=== PATIENT | male | born 1975 | race Caucasian/White ===

== ENCOUNTER 2019-05-03 18:37 | Emergency (ER) | payer OTHER ==
[2019-05-03] MEDS: HYDROmorphone 1 MG/ML 1 ML SYRINGE IVP STA ×3 (18:43→21:14)
[2019-05-03] MEDS ORDERED: SODIUM CHLORIDE 0.9% 1,000 ML IV STA (18:46)
[2019-05-03 19:07] LABS: Basophils # (A) 0.1 k/uL (0-0.2); Basophils % (A) 1 %; Eosinophils # (A) 0.3 k/uL (0-0.7); Eosinophils % (A) 2 %; HCT 46.8 % (39.0-53.0); Lymphocytes # (A) 2.5 k/uL (1.0-4.8); Lymphocytes % (A) 21 %; MCH 31.2 pg (25.0-35.0); MCHC 34.2 g/dL (31.0-37.0); MCV 91.2 fL (80.0-100.0); Mean Platelet Volume 7.6; Monocytes # (A) 0.6 k/uL (0-1.0); Monocytes % (A) 5 %; Neutrophils # (A) 8.3 k/uL (1.3-7.7); Neutrophils % (A) 70 %; Platelet Count 197 k/uL (150-450); RBC 5.13 m/uL (4.30-5.90); RDW 12.5 % (11.5-15.5)
[2019-05-03 19:08] LABS: Glucose,Whole Blood 134 mg/dL (75-99)
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
[2019-05-03 19:18] LABS: Partial Thromboplastin Time 23.4 sec (22.0-30.0); Prothrombin Time 10.7 sec (9.0-12.0)
[2019-05-03 19:20] LABS: ALT 21 U/L (21-72); AST 25 U/L (17-59); African American GFR (CKD) >90 (>60 ml/min/1.73 sqM); Albumin 4.7 g/dL (3.5-5.0); Alcohol <10 mg/dL; Alkaline Phosphatase 89 U/L (38-126); Amylase 57 U/L (30-110); Anion Gap 12 mmol/L; Blood Urea Nitrogen 24 mg/dL (9-20); Calcium 9.4 mg/dL (8.4-10.2); Carbon Dioxide 23 mmol/L (22-30); Chloride 106 mmol/L (98-107); Glucose 138 mg/dL (74-99); Potassium 3.8 mmol/L (3.5-5.1); Sodium 141 mmol/L (137-145); Total Protein 7.6 g/dL (6.3-8.2)
[2019-05-03 19:24] LABS: Creatine Kinase 180 U/L (55-170)
[2019-05-03 19:35] LABS: Troponin I <0.012 ng/mL (0.000-0.034)
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
[2019-05-03 19:43] VITALS: BP 140/111; PULSE 67; RESP 22; TEMP 97.6
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
== END 2019-05-03 22:00 | disposition home or self-care (01) ==
LOC: EC 18:37
DX: S40.011A Contusion of right shoulder, initial encounter (principal); S40.212A Abrasion of left shoulder, initial encounter; M25.551 Pain in right hip; G89.29 Other chronic pain; M54.9 Dorsalgia, unspecified; F17.200 Nicotine dependence, unspecified, uncomplicated; V22.4XXA Motorcycle driver injured in collision with two- or three-wheeled motor vehicle in traffic accident, initial encounter; Y93.55 Activity, bike riding; Y92.410 Unspecified street and highway as the place of occurrence of the external cause
CPT/HCPCS: 99285; 96374; 96376; 96361; 36415; 86900; 86901; 80053; 82150; 82550; 82553; 83605; 83690; 84484; 85025; 85610; 85730; 86850; 72170; 73030; 73060; 71045; 72125; 70450; 71260; 74177; G0480; J1170; Q9967; 80320